=== PATIENT | male | born 1980 | race Two or more races ===

== ENCOUNTER 2017-01-20 14:16 | Emergency (ER) | payer BC ==
[2017-01-20 14:22] VITALS: BP 140/88; PULSE 85; TEMP 97.9; BMI 38.7
--- NOTE | 2017-01-20 15:24 | PDOC ---
History of Present Illness - General Chief Complaint: Urinary Problem Stated Complaint: R/O UTI Time Seen by Provider: 01/20/17 15:18 History Source: Patient Exam Limitations: No Limitations - History of Present Illness Travel History: No Initial Comments: 01/20/17 16:00 patient states 3 days ago had BM that he needded to strain wiht and since that time has had pain and suprapubic discomfort. Denies history of constipation, denies any rectal bleeding, denies any pain with defecation currently however states has some discomfort when sitting in his perineum since this incident. States also pain is deep suprapubic. Denies fever, denies nausea vomiting or diarrhea. Denies any changes in exercise or activity, no trauma. Was advised by friend that may be UTI so started taking AZO, and baby came concerned about the discoloration of the urine. 01/20/17 21:14 Timing/Duration: reports: getting worse Quality: reports: mild, moderate, aching, cramping Abdominal Pain Onset Location: reports: suprapubic, other (perineum) Pain Radiation: reports: no radiation Alleviating Factors: improves with: None Past History - Travel Traveled outside of the country in the last 30 days: No Close contact w/someone who was outside of country & ill: No - Past Medical History Allergies/Adverse Reactions: Allergies Allergy/AdvReac Type Severity Reaction Status Date / Time No Known Allergies Allergy Verified 01/20/17 14:20 Home Medications: Ambulatory Orders Hydrocortisone Acetate [Anusol Hc Suppository -] 25 mg RC DAILY #14 supp.rect - Psycho/Social/Smoking Cessation Hx Suicidal Ideation: No Smoking History: Never smoked Have you smoked in the past 12 months: No Information on smoking cessation initiated: No Hx Alcohol Use: No Drug/Substance Use Hx: No Review of Systems - Review of Systems Able to Perform ROS?: Yes Is the patient limited Yakut proficient: Yes Constitutional: Yes: See HPI. No: Symptoms Reported, Malaise HEENTM: Yes: See HPI. No: Symptoms Reported Respiratory: Yes: See HPI. No: Symptoms reported ABD/GI: Yes: Symptoms Reported, See HPI. No: Constipated, Diarrhea, Nausea, Poor Appetite, Poor Fluid Intake, Vomiting : Yes: Symptoms Reported, See HPI, Other (concerned about discoloration - ). No: Dysuria, Discharge, Frequency, Testicular Pain (no history of torsion/ mass / STD) Musculoskeletal: No: Symptoms Reported Integumentary: No: Symptoms Reported All Other Systems: Reviewed and Negative *Physical Exam - Vital Signs Last Vital Signs Temp Pulse Resp BP Pulse Ox 97.9 F 85 20 140/88 98 01/20/17 14:20 01/20/17 14:20 01/20/17 14:20 01/20/17 14:20 01/20/17 14:20 - Physical Exam General Appearance: Yes: Nourished, Appropriately Dressed. No: Apparent Distress HEENT: positive: JOSE, Normal ENT Inspection, TMs Normal, Pharynx Normal Neck: positive: Supple. negative: Tender, Lymphadenopathy (R), Lymphadenopathy (L) Respiratory/Chest: positive: Lungs Clear, Normal Breath Sounds Gastrointestinal/Abdominal: positive: Tender (mild suprapubic tenderness to deep palpation, no rebound or guarding), Soft Male Genitalia: positive: normal genitalia. 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 May use ibuprofen or Tylenol for pain relief and encouraged to continue keeping bowel movements soft to avoid any straining. *DC/Admit/Observation/Transfer Diagnosis at time of Disposition: Pain, anal - Discharge Dispostion Disposition: HOME Condition at time of disposition: Stable Admit: No - Prescriptions Prescriptions: Hydrocortisone Acetate [Anusol Hc Suppository -] 25 mg RC DAILY #14 supp.rect - Referrals Referrals: Milo Faye MD., MD [Staff Physician] - - Patient Instructions Additional Instructions: Rest, avoid heavy lifting or strenuous activity for next few days. Drink LOTS of fluids, colored drinks and certain foods will affect your urine color Followup with Urologist for further evaluation. May try Anusol Suppositories for relief/
[2017-01-20 15:36] LABS: URINE APPEARANCE CLEAR; URINE BILIRUBIN NEGATIVE (NEGATIVE); URINE BLOOD NEGATIVE (NEGATIVE); URINE COLOR AMBER; URINE GLUCOSE (UA) NEGATIVE (NEGATIVE); URINE KETONE NEGATIVE (NEGATIVE); URINE LEUK ESTERASE NEGATIVE (NEGATIVE); URINE NITRITE POSITIVE (NEGATIVE); URINE PROTEIN NEGATIVE (NEGATIVE); URINE UROBILINOGEN 4.0 E.U/dl E.U./dl (0.2-1.0)
[2017-01-20 15:40] LABS: URINE BACTERIA RARE /hpf (NONE SEEN); URINE RBC <1 /hpf (0-3); URINE WBC 2 /hpf (3-5)
== END 2017-01-20 16:02 | disposition home or self-care (01) ==
LOC: JERFT 14:16
DX: K62.89 Other specified diseases of anus and rectum (principal)
CPT/HCPCS: 36415; 81003; 81015; 87086; 87491; 87591; 99281-25